=== PATIENT | female | born 1955 | race African-American/Black ===

== ENCOUNTER 2019-01-28 19:34 | Emergency (ER) | payer MEDICARE, MEDICAID ==
[~2019-01-28] VITALS: Ht 170.2 cm; Wt 113.0 kg
[2019-01-29] MEDS ORDERED: HYDROCODONE/ACETAMINOPHEN 5/325MG TABLET PO ONE (00:45)
[2019-01-29] MEDS ORDERED: IBUPROFEN 800MG TABLET PO ONE (00:45)
[2019-01-29 01:45] VITALS: BP 147/78
== END 2019-01-29 02:15 | disposition home or self-care (01) ==
LOC: ER 19:34
DX: S70.02XA Contusion of left hip, initial encounter (principal); I50.9 Heart failure, unspecified; W06.XXXA Fall from bed, initial encounter; Y93.89 Activity, other specified; Y92.89 Other specified places as the place of occurrence of the external cause; Y99.8 Other external cause status; Z95.0 Presence of cardiac pacemaker
CPT/HCPCS: 74176; 99284